=== PATIENT | male | born 1995 | race Caucasian/White ===

== ENCOUNTER 2020-07-07 20:31 | Emergency (ER) | payer OTHER ==
[~2020-07-07] VITALS: Ht 193 cm; Wt 99.8 kg
--- NOTE | 2020-07-07 20:35 | NUR ---
[employer] [facility] [address] at bedside with patient. Officer Trenton serial #[id number] and Officer Joe serial #[id number].
--- NOTE | 2020-07-07 20:41 | NUR ---
MD Pearson in room to do MSE.
[2020-07-07] MEDS ORDERED: SULFAMETH/TRIMETH 800/160 MG TABLET PO ONE (20:45)
[2020-07-07] MEDS ORDERED: ONDANSETRON ODT 4 MG TAB.RAPDIS SL ONE (20:45)
[2020-07-07] MEDS ORDERED: CEFTRIAXONE 1 G VIAL IM ONE (20:45)
[2020-07-07] MEDS ORDERED: ONDANSETRON ODT 4 MG TAB.RAPDIS ONE (21:00)
[2020-07-07] MEDS ORDERED: LIDOCAINE HCL 1% 20 ML VIAL ONE (21:00)
[2020-07-07] MEDS ORDERED: CEFTRIAXONE 1 G VIAL ONE (21:00)
[2020-07-07] MEDS ORDERED: SULFAMETH/TRIMETH 800/160 MG TABLET ONE (21:00)
--- NOTE | 2020-07-07 21:00 | NUR ---
Patient is lethargic, but arousable: not in acute distress.
--- NOTE | 2020-07-07 21:00 | NUR ---
Rocephin ordered to be given via IM, not IV, no IV reassessment or stop time document done due to this.
--- NOTE | 2020-07-07 21:40 | NUR ---
Patient increasingly lethargic, SpO2 decreased to 91%, patient placed on nasal cannula 4 LPM and SpO2 increased to 98%. MD Michel Dwyer aware.
--- NOTE | 2020-07-08 00:07 | NUR ---
Patient nasal cannula removed, now SpO2 97% on room air.
[2020-07-08] MEDS ORDERED: SULF1TAB48 PO (00:23)
[2020-07-08] MEDS ORDERED: NALO4SPR NS (00:23)
[2020-07-08 00:30] VITALS: BP 115/69
--- NOTE | 2020-07-08 00:30 | NUR ---
Patient discharged to [facility] in stable condition. Written and verbal after care instructions given. Patient and officers verbalizes understanding of instructions. Stressed follow up or return to ER for worsening s/s. Patient medically cleared by MD Michel Dwyer to be booked, V/S stable, patient has steady gait, left with all belongings, discharged into custody of [facility] officers.
== END 2020-07-08 00:30 ==
LOC: ER 20:36
DX: R53.1 Weakness (principal); R11.0 Nausea; T40.415A Adverse effect of fentanyl or fentanyl analogs, initial encounter; Y92.410 Unspecified street and highway as the place of occurrence of the external cause; F17.210 Nicotine dependence, cigarettes, uncomplicated; L97.811 Non-pressure chronic ulcer of other part of right lower leg limited to breakdown of skin; F11.10 Opioid abuse, uncomplicated
CPT/HCPCS: 71045; 96372; 99284; 99406; J0696; J3490; A4663; Q0162